=== PATIENT | female | born 1960 | race Asian ===

== ENCOUNTER 2023-01-18 20:15 | Emergency (ER) | payer BC ==
--- OUTSIDE RECORDS SUMMARY | 2023-01-18 20:20 | XMS REPORT | Continuity of Care Document ---
:1960 Author Organization [facility] t Address [address] [facility] [address] [place] [address] Care Team Providers Name Role Phone Ryan Meier MD Primary Care Physician [phone] [email or web address]_Kabritanya_S Attending Clinician Unavailable LENA VAUGHAN Attending Clinician Unavailable COMPA VELASCO Attending Clinician Unavailable [email or web address]_S Admitting Clinician Unavailable Problems This patient has no known problems. Allergies, Adverse Reactions, Alerts This patient has no known allergies or adverse reactions. Social History Social Habit Start Date Stop Date Quantity Comments Source Sexual orientation [facility] Alcohol intake 2017-01-20 2017-01-20 Current [facility] 00:00:00 00:00:00 non-drinker of Medical Ce nter alcohol (finding) Tobacco use and 2014-11-27 2014-11-27 Smokeless tobacco [facility] exposure 00:00:00 00:00:00 non-user [facility] Center Sex Assigned At [birth year] [facility] 00:00:00 00:00:00 [facility] Center Smoking Status Start Date Stop Date Source Never smoked tobacco [facility] Medications Ordered Filled Start Stop Current Ordering Indication Dosage Frequency Signature Comments Components Source Medication Medication Date Date Medication? Clinician (SIG) Name Name glucosamine 2016-03 Yes 1{tbl} [id number] Take [address] [facility] [address] -chondroiti [id number] tablet by [facility] 500-400 15:02: 3D mouth 3 Medic al mg tablet 16 (three) Center times daily. vitamin E 2016-03 Yes 400U QD Take [address] [facility] 400 UNIT 1-13 Units by [facility] capsule 15:02: mouth Medical 16 daily. Center colestipol 2016-03 Yes 1g Q.5D Take [address] [facility] (COLESTID) 1-13 by mouth 2 [place] 1 gram 15:02: (two) Medical tablet 16 times Center daily. cholecalcif 2016-03 Yes Take by [facility] argelia, 1-13 mouth. [facility] vitamin D3, 15:02: Medica l 2,000 unit 16 Center Cap CALCIUM 2016-03 Yes Take by [facility] CARBONATE 1-13 mouth. [facility] (CALCIUM 15:02: Medical 600 ORAL) 16 Center Procedures This patient has no known procedures. Encounters Start End Encounter Admission Attending Care Care Encounter Source Date/Time Date/Time Type Type Clinicians Facility Department ID 2023-01-06 2023-01-06 Outpatient [email or web address]_Ka PRIV PRIV [id number] [facility] 00:00:00 00:00:00 diyala_S [id number] Medic al 2023-01-05 2023-01-05 Outpatient [email or web address]_Ka PRIV PRIV [id number] [facility] 00:00:00 00:00:00 diyala_S [id number] Medic al 2022-10-22 2022-10-22 Outpatient [facility] [id number] [facility] 09:01:00 23:59:00 LENA 00 Results Test Description Test Time Test Comments Results Result Comments Source ELECTROLYTES 2017-01-14 11:22:00 Test Item Value Reference Range Interpretation Comme nts SODIUM (BEAKER) (test code = 381) 142 meq/L 136-145 POTASSIUM (BEAKER) (test code = 379) 4.5 meq/L 3.5-5.1 CHLORIDE (BEAKER) (test code = 382) 107 meq/L 98-107 CO2 (BEAKER) (test code = 355) 29 meq/L 22-29 SCREEN, [id number] 10:30:00 Test Item Value Reference Range Interpretation Comments TEST URINE (BEAKER) (test Negative code = 583) CBC W/PLT COUNT & AUTO [id number] 10:22:00 Test Item Value Reference Range Interpretation Comments WHITE BLOOD CELL COUNT (BEAKER) 7.5 K/ L 3.5-10.5 (test code = 775) RED BLOOD CELL COUNT (BEAKER) 4.65 M/ L 3.93-5.22 (test code = 761) HEMOGLOBIN (BEAKER) (test code = 13.8 GM/DL 11.2-15.7 410) HEMATOCRIT (BEAKER) (test code = 42.5 % 34.1-44.9 411) MEAN CORPUSCULAR VOLUME (BEAKER) 91.4 fL 79.4-94.8 (test code = 753) MEAN CORPUSCULAR HEMOGLOBIN 29.7 pg 25.6-32.2 (BEAKER) (test code = 751) MEAN CORPUSCULAR HEMOGLOBIN CONC 32.5 GM/DL 32.2-35.5 (BEAKER) (test code = 752) RED CELL DISTRIBUTION WIDTH 11.8 % 11.7-14.4 (BEAKER) (test code = 412) PLATELET COUNT (BEAKER) (test 264 K/CU MM 150-450 code = 756) MEAN PLATELET VOLUME (BEAKER) 9.1 fL 9.4-12.3 L (test code = 754) NUCLEATED RED BLOOD CELLS 0 /100 WBC 0-0 (BEAKER) (test code = 413) NEUTROPHILS RELATIVE PERCENT 54 % (BEAKER) (test code = 429) LYMPHOCYTES RELATIVE PERCENT 35 % (BEAKER) (test code = 430) MONOCYTES RELATIVE PERCENT 8 % (BEAKER) (test code = 431) EOSINOPHILS RELATIVE PERCENT 2 % (BEAKER) (test code = 432) BASOPHILS RELATIVE PERCENT 0 % (BEAKER) (test code = 437) NEUTROPHILS ABSOLUTE COUNT 4.08 K/ L 1.56-6.13 (BEAKER) (test code = 670) LYMPHOCYTES ABSOLUTE COUNT 2.65 K/ L 1.18-3.74 (BEAKER) (test code = 414) MONOCYTES ABSOLUTE COUNT (BEAKER) 0.59 K/ L 0.24-0.36 H (test code = 415) EOSINOPHILS ABSOLUTE COUNT 0.16 K/ L 0.04-0.36 (BEAKER) (test code = 416) BASOPHILS ABSOLUTE COUNT (BEAKER) 0.01 K/ L 0.01-0.08 (test code = 417) IMMATURE GRANULOCYTES-RELATIVE 0 % 0-1 PERCENT (CARMEN) (test code = 2801)
[2023-01-18] MEDS ORDERED: ACETAMINOPHEN 500 MG TAB ONE (21:22)
[2023-01-18] MEDS ORDERED: CIPROFLOXACIN 400mg IV 400 MG/200 ML BAG IV ONE (21:22)
[2023-01-18] MEDS ORDERED: TDAP (DIPHTH,PERTUSS(ACELL),TET VAC) 0.5 ML VIAL IMVAC ONE (21:37)
[2023-01-18] MEDS ORDERED: LIDOCAINE 1% 20 ML MDV ONE (21:37)
--- NOTE | 2023-01-18 22:38 | ER ---
Nurse's Notes [facility] Name: Gerald Hopkins Age: 62 yrs Sex: Female : 1960 Arrival Date: 01/18/2023 Time: 20:15 Bed 10 Private MD: Diagnosis: Laceration without foreign body of finger without damage to nail Presentation: 01/18 20:26 Chief complaint: Patient states: laceration to left hand 3rd digit with pain of 3,onset pf1 1999. stated patient cut finger on a broken ceramic bowl. Coronavirus screen: Vaccine status: Patient reports receiving the 2nd dose of the covid vaccine. 3 doses Client denies travel out of the [place] in the last 14 days. At this time, the client does not indicate any symptoms associated with coronavirus-19. Ebola Screen: Patient negative for fever greater than or equal to 101.5 degrees Fahrenheit, and additional compatible Ebola Virus Disease symptoms. Initial Sepsis Screen: Does the patient meet any 2 criteria? No. Patient's initial sepsis screen is negative. Does the patient have a suspected source of infection? No. Patient's initial sepsis screen is negative. Risk Assessment: Do you want to hurt yourself or someone else? Patient reports no desire to harm self or others. 20:26 Method Of Arrival: Ambulatory pf1 20:26 Acuity: ASTER 4 pf1 Historical: - Allergies: 20:34 No Known Allergies; pf1 - PMHx: 20:34 High Cholesterol; Gout; pf1 - PSHx: 20:34 back surgery; pf1 - Immunization history:: Adult Immunizations up to date, Client reports receiving the 2nd dose of the Covid vaccine, 3 doses of pfizer Last tetanus immunization: < 10 years ago Flu vaccine is up to date. - Social history:: Smoking status: Patient denies any tobacco usage or history of. Patient/guardian denies using alcohol, street drugs. Screenin:30 [facility] ED Fall Risk Assessment (Adult) History of falling in the last 3 months, pf1 including since admission No falls in past 3 months (0 pts) Confusion or Disorientation No (0 pts) Intoxicated or Sedated No (0 pts) Impaired Gait No (0 pts) Mobility Assist Device Used No (0 pt) Altered Elimination No (0 pt) Score/Fall Risk Level 0 - 2 = Low Risk Oriented to surroundings, Maintained a safe environment, Educated pt \T\ family on fall prevention, incl call for assistance when getting out of bed, Assessed \T\ reinforced patient's understanding of fall precautions, Provided non-skid footwear, Hourly rounding (assess needs \T\ fall precautionary measures) done, Used ambulatory aids as needed (educated on \T\ assisted with). 20:30 Abuse screen: Denies threats or abuse. Nutritional screening: No deficits noted. pf1 Tuberculosis screening: No symptoms or risk factors identified. Assessment: 20:26 General: Appears in no apparent distress. comfortable, well groomed, well developed, pf1 Behavior is calm, cooperative, appropriate for age, quiet. 20:26 Pain: Complains of pain in palmar aspect of distal phalanx of left middle finger Pain pf1 currently is 3 out of 10 on a pain scale. Neuro: No deficits noted. Level of Consciousness is awake, alert, obeys commands, Oriented to person, place, time, situation. Cardiovascular: No deficits noted. Capillary refill < 3 seconds Patient's skin is warm and dry. Respiratory: No deficits noted. Airway is patent Respiratory effort is even, unlabored, Respiratory pattern is regular, symmetrical. GI: No deficits noted. No signs and/or symptoms were reported involving the gastrointestinal system. : No deficits noted. No signs and/or symptoms were reported regarding the genitourinary system. EENT: No deficits noted. No signs and/or symptoms were reported regarding the EENT system. Derm: Wound noted palmar aspect of distal phalanx of left middle finger Wound is 2.5cm laceration. 21:30 Reassessment: Patient appears in no apparent distress at this time. Patient and/or pf1 family updated on plan of care and expected duration. Pain level reassessed. Patient is alert, oriented x 3, equal unlabored respirations, skin warm/dry/pink. Patient states symptoms have improved. 22:30 Reassessment: Patient appears in no apparent distress at this time. Patient and/or pf1 family updated on plan of care and expected duration. Pain level reassessed. Patient is alert, oriented x 3, equal unlabored respirations, skin warm/dry/pink. Patient states feeling better. Patient states symptoms have improved. Vital Signs: 20:26 BP 141 / 87; Pulse 79; Resp 16; Temp 98.4; Pulse Ox 100% ; Weight 61.23 kg; Height 5 pf1 ft. 0 in. ; Pain 3/10; 22:00 BP 133 / 78; Pulse 70; Resp 16; Pulse Ox 100% on R/A; Pain 0/10; pf1 23:00 BP 135 / 69; Pulse 72; Resp 16; Pulse Ox 99% on R/A; pf1 20:26 Body Mass Index 26.37 (61.23 kg, 152.4 cm) pf1 20:26 Pain Scale: Adult pf1 22:00 Pain Scale: Adult pf1 ED Course: 20:21 Patient arrived in ED. gm2 20:21 Beckie Tripathi PA-C is PHCP. sb4 20:21 Davie Morales MD is Attending Physician. sb4 20:30 Patient has correct armband on for positive identification. Bed in low position. Call pf1 light in reach. 20:30 Arm band placed on right wrist. pf1 20:30 No provider procedures requiring assistance completed. pf1 20:34 Triage completed. pf1 22:17 Hand Left 3 View XRAY In Process Unspecified. EDMS 22:40 Dressings: Kerlix X 1; palmar aspect of distal phalanx of left middle finger pf1 non-adherent dressing x 1 palmar aspect of distal phalanx of left middle finger. 23:00 Patient did not have IV access during this emergency room visit. pf1 23:01 Provided Education on: wound care and suture removal. pf1 Administered Medications: 21:30 Drug: Boostrix Tdap IM 0.5 ml IM once; as a single dose Route: IM; Site: right deltoid; pf1 22:30 Follow up: Response: No adverse reaction; Marked relief of symptoms pf1 22:30 Drug: Lidocaine Infiltration (1 %) 20 ml 20 ml Infiltration once; to bedside, lido pf1 without epi {Note: per PA. Deuce} Volume: 20 ml; Route: Infiltration; 23:00 Follow up: Response: No adverse reaction; Marked relief of symptoms; Pain is decreased pf1 Medication: 23:00 Vaccine Information Statement (VIS) provided today. Questions and/or concerns pf1 addressed. VIS edition date: October 12, 2020. Outcome: 22:37 Discharge ordered by . sb4 23:00 Discharged to home ambulatory, with family, pf1 23:00 Condition: improved 23:00 Discharge instructions given to patient, Instructed on discharge instructions, follow up and referral plans. wound care, Demonstrated understanding of instructions, follow-up care, wound care, 23:01 Patient left the ED. pf1 Signatures: Dispatcher [employer] EDBeckie Vallejo PA-C PA-C sb4 Alexa Nair RN RN pf1 Jonelle Menard gm2 Corrections: (The following items were deleted from the chart) 01/19 06:18 01/18 20:26 Derm: Wound noted palmar aspect of distal phalanx of left middle finger pf1 Wound is laceration pf1
--- NOTE | 2023-01-18 22:38 | EDPHYS ---
Physician Documentation [facility] Name: Gerald Hopkins Age: 62 yrs Sex: Female : 1960 Arrival Date: 01/18/2023 Time: 20:15 Bed 10 Private MD: ED Physician Davie Morales HPI: 01/18 21:10 This 62 yrs old Female presents to ER via Ambulatory with complaints of Finger sb4 Injury, finger laceration to middle finger. 21:10 The patient has a laceration related to: cooking, from a broken dish, occurred at home, sb4 and there are no complicating factors. The injury was accidental. 21:11 The laceration(s) is(are) located on the palmar aspect of distal phalanx of left middle sb4 finger. Onset: The symptoms/episode began/occurred just prior to arrival. Associated signs and symptoms: Pertinent negatives: deformity, dizziness, loss of consciousness, numbness distal to injury, suspected foreign body. The patient has not experienced similar symptoms in the past. The patient has not recently seen a physician. Historical: - Allergies: 20:34 No Known Allergies; pf1 - PMHx: 20:34 High Cholesterol; Gout; pf1 - PSHx: 20:34 back surgery; pf1 - Immunization history:: Adult Immunizations up to date, Client reports receiving the 2nd dose of the Covid vaccine, 3 doses of pfizer Last tetanus immunization: < 10 years ago Flu vaccine is up to date. - Social history:: Smoking status: Patient denies any tobacco usage or history of. Patient/guardian denies using alcohol, street drugs. ROS: 21:11 Constitutional: Negative for fever, chills, and weight loss, sb4 21:11 Skin: Positive for laceration(s), 21:11 All other systems are negative, Exam: 21:11 Constitutional: This is a well developed, well nourished patient who is awake, alert, sb4 and in no acute distress. Head/Face: Normocephalic, atraumatic. Eyes: Extra-ocular motions intact. Periorbital areas with no swelling, redness, or edema. ENT: Mucous membranes moist. MS/ Extremity: Pulses equal, no cyanosis. Neurovascular intact. Full, normal range of motion. Neuro: Awake and alert, GCS 15, oriented to person, place, time, and situation. Motor strength 5/5 in all extremities. Sensory grossly intact. 21:11 Skin: injury, laceration(s), the wound is approximately 2.5 cm(s), with a depth of .5 cm(s), of the palmar aspect of distal phalanx of left middle finger, that can be described as no foreign body, linear, with moderate bleeding, Vital Signs: 20:26 BP 141 / 87; Pulse 79; Resp 16; Temp 98.4; Pulse Ox 100% ; Weight 61.23 kg; Height 5 pf1 ft. 0 in. ; Pain 3/10; 22:00 BP 133 / 78; Pulse 70; Resp 16; Pulse Ox 100% on R/A; Pain 0/10; pf1 23:00 BP 135 / 69; Pulse 72; Resp 16; Pulse Ox 99% on R/A; pf1 20:26 Body Mass Index 26.37 (61.23 kg, 152.4 cm) pf1 20:26 Pain Scale: Adult pf1 22:00 Pain Scale: Adult pf1 Laceration: 22:35 Wound Repair of 2.5cm ( 1.0in ) subcutaneous laceration to palmar aspect of distal sb4 phalanx of left middle finger. Distal neuro/vascular/tendon intact. Anesthesia: Digital block administered with 5 mls of 1% lidocaine. Wound prep: Moderate cleansing with betadine, Wound irrigation with saline by va, Wound explored, Copious irrigation. Skin closed with 6 5-0 Prolene using simple sutures and sterile technique. Dressed with pressure dressing. Patient tolerated well. MDM: 20:29 Patient medically screened. sb4 21:11 Differential diagnosis: superficial laceration, tendon injury, vascular injury. sb4 22:02 Independent interpretation of the following test(s) in the Emergency Department X-Ray: sb4 My interpretation is My interpretation of the hand x-ray images are no acute fracture or foreign body present. 22:35 Data reviewed: vital signs, nurses notes, radiologic studies, and as a result, I will sb4 discharge patient. Counseling: I had a detailed discussion with the patient and/or guardian regarding the historical points, exam findings, and any diagnostic results supporting the discharge/admit diagnosis, radiology results, the need for outpatient follow up, for suture removal in 7-10 days, to return to the emergency department if symptoms worsen or persist or if there are any questions or concerns that arise at home. 01/18 21:12 Order name: Hand Left 3 View XRAY; Complete Time: 22:44 sb4 01/18 20:52 Order name: Suture Tray Setup; Complete Time: 21:30 sb4 01/18 22:35 Order name: Dressing - Wound; Complete Time: 22:51 sb4 Administered Medications: 21:30 Drug: Boostrix Tdap IM 0.5 ml IM once; as a single dose Route: IM; Site: right deltoid; pf1 22:30 Follow up: Response: No adverse reaction; Marked relief of symptoms pf1 22:30 Drug: Lidocaine Infiltration (1 %) 20 ml 20 ml Infiltration once; to bedside, lido pf1 without epi {Note: per PA. Deuce} Volume: 20 ml; Route: Infiltration; 23:00 Follow up: Response: No adverse reaction; Marked relief of symptoms; Pain is decreased pf1 Disposition Summary: 01/18/23 22:37 Discharge Ordered Notes: Location: Home sb4 Problem: new sb4 Symptoms: have improved sb4 Condition: Stable sb4 Diagnosis - Laceration without foreign body of finger without damage to nail sb4 Followup: sb4 - With: Emergency Department - When: 7 - 10 days - Reason: Staple/Suture removal Discharge Instructions: - Discharge Summary Sheet sb4 - Sutured Wound Care, [id number] sb4 Forms: - Medication Reconciliation Form sb4 - Thank You Letter sb4 - Antibiotic Education sb4 - Prescription Opioid Use sb4 - Patient Portal Instructions sb4 - Leadership Thank You Letter sb4 Signatures: Dispatcher [employer] Beckie Davies PA-C PA-C sbAlexa Mohamud, RN RN pf1
--- NOTE | 2023-01-18 22:40 | RAD REPORT ---
EXAM DESCRIPTION: RAD -Hand Left 3 View - 01/18/2023 10:15 pm CLINICAL HISTORY: Left hand pain status post injury FINDINGS: No fracture or dislocation is seen. Hypoplastic fifth middle proximal phalanx Radiopaque foreign body is not seen
[2023-01-18 23:25] VITALS: BP 141/87; TEMP 98.4; O2SAT 100
== END 2023-01-18 23:01 | disposition home or self-care (01) ==
LOC: ER 20:15
PROC: 0HQGXZZ Repair Left Hand Skin, External Approach (ICD-10-PCS; principal; 2023-01-18)
DX: S61.213A Laceration without foreign body of left middle finger without damage to nail, initial encounter (principal)
CPT/HCPCS: 73130; 96372; 99284; 12001; J2001; J0744

== ENCOUNTER 2023-01-27 15:43 | Emergency (ER) | payer BC ==
--- OUTSIDE RECORDS SUMMARY | 2023-01-27 15:47 | XMS REPORT | Continuity of Care Document ---
:1960 Author Organization [facility] t Address [address] [facility] [address] [place] [address] Care Team Providers Name Role Phone Hardeep SLOAN, Ryan Hernandez Primary Care Physician [phone] [email or web address]_S Attending Clinician Unavailable COMPA VELASCO Attending Clinician Unavailable [email or web address]_S Admitting Clinician Unavailable Problems This patient has no known problems. Allergies, Adverse Reactions, Alerts This patient has no known allergies or adverse reactions. Social History Social Habit Start Date Stop Date Quantity Comments Source Sexual orientation [facility] Alcohol intake 2017-01-20 2017-01-20 Current [facility] 00:00:00 00:00:00 non-drinker of Medical Ce nter alcohol (finding) Tobacco use and 2014-11-27 2014-11-27 Smokeless tobacco [facility] exposure 00:00:00 00:00:00 non-user [facility] Sex Assigned At [birth year] [facility] kes 00:00:00 00:00:00 [facility] Smoking Status Start Date Stop Date Source Never smoked tobacco [facility] Medications Ordered Filled Start Stop Current Ordering Indication Dosage Frequency Signature Comments Components Source Medication Medication Date Date Medication? Clinician (SIG) Name Name vitamin E 2016-03 Yes 400U QD Take [...] (CALCIUM 15:02: Medical 600 ORAL) 16 Center glucosamine 2016-03 Yes 1{tbl} Q.95256992 Take [address] [facility] -chondroiti 1-13 [id number] tablet by [facility] n 500-400 15:02: 3D mouth 3 Medic al mg tablet 16 (three) Center times daily. glucosamine 2016-03 Yes 1{tbl} Q.63848010 Take [address] [facility] -chondroiti 1-13 [id number] tablet by [facility] n 500-400 15:02: 3D mouth 3 Medic al mg tablet 16 (three) Center times daily. vitamin E 2016-03 Yes 400U QD Take [address] [facility] [address] 400 UNIT 1-13 Units by [facility] capsule 15:02: mouth Medical 16 daily. [place] colestipol 2016-03 Yes 1g Q.5D Take 1 [...] 2023-01-06 2023-01-06 Outpatient [email or web address]_Ka PRIV PRIV [id number] [facility] 00:00:00 00:00:00 diyala_S [id number] Medic al 2023-01-05 2023-01-05 Outpatient GC_GCBZW_Ka PRIV PRIV [id number] [facility] 00:00:00 00:00:00 diyala_S [id number] Medic al Results Test Description Test Time Test Comments Results Result Comments Source ELECTROLYTES 2017-01-14 11:22:00 Test Item Value Reference Range Interpretation Comme nts SODIUM (BEAKER) (test code = 381) 142 meq/L 136-145 POTASSIUM (BEAKER) (test code = 379) 4.5 meq/L 3.5-5.1 CHLORIDE (BEAKER) (test code = 382) 107 meq/L 98-107 CO2 (BEAKER) (test code = 355) 29 meq/L 22-29 SCREEN, [id number] 10:30:00 Test Item Value Reference Range Interpretation Comments TEST URINE (BEAKER) (test Negative code = 583) CBC W/PLT COUNT & AUTO [id number] 10:22:00 Test Item Value Reference Range Interpretation [...] 417) IMMATURE GRANULOCYTES-RELATIVE 0 % 0-1 PERCENT (BEAKER) (test code = 2801) Notes Date/Time Note Provider Source 2017-01-22 02:33:00 [id number]:33:00 REPORT OF COMPA [facility] PROCEDURECAMMARKOS NAVAUYEN FACILITY: [facility] #: [id number] ROOM: [facility] ED25MR #: [id number] : 2DATE OF PROCEDURE: 01/19/2017SURGEON: Compa Velasco [facility] Dr. Mike Mooney, hand fellow.PREOPERATIVE DIAGNOSES1. Left de Quervain stenosing tenosynovitis (M65.4).2. Stenosing 2nd dorsal tenosynovitis on the left wrist (M65.842).POSTOPERATIVE DIAGNOSES1. Left de Quervain stenosing tenosynovitis (M65.4).2. Stenosing 2nd dorsal tenosynovitis on the left wrist (M65.842).OPERATIONS PERFORMED1. Release of left wrist de Quervain stenosing tenosynovitis of the 1stdorsal compartment (57564).2. Release of left wrist 2nd dorsal compartment (57737.59).ANESTHESIA: [place] block.INDICATIONS FOR PROCEDURE: This is a 57-year-old patient who has previouslyseen me for very painful and obviously symptomatic left 1st dorsal stenosingde Quervain tenosynovitis. She also has palpable crepitus over theintersection area. This has not responded to prior injection and splintimmobilization. She is therefore brought to the operating room for releaseof both 1st and 2nd dorsal compartments.DESCRIPTION OF PROCEDURE: After Endy block had been placed and entire leftupper extremity prepped with Betadine and draped in a sterile fashion, I madea dorsal radial longitudinal incision that would give me access to both the1st and 2nd dorsal compartments. I dissected directly down into the fascialongitudinally and took great care to identify and minimize any potentialinjury to any of the branches of the superficial radial sensory nerve. The1st dorsal compartment was grossly thickened and fascia was incisedlongitudinally over favoring a more dorsal approach. There was also acompletely separate compartment for the EPB tendon. There was an EPB tendonand 2 separate tendons for the APL. Each of these were thoroughly released.I then evaluated the 2nd dorsal compartment and I incised that longitudinallyas well opening up to expose the ECRL and ECRB. I dissected back deep to theintersection area between the 1st and 2nd dorsal compartment tendons. Bothof these compartments now thoroughly released. The wound is irrigated withnormal saline and the wound edges reapproximated with interrupted Vicrylsubcutaneously and a running subcuticular Monocryl to skin. Plain Marcaine,0.25%, was then used to infiltrate the wound edges to help with postoperativeanalgesia and dressings took the form of Adaptic with bacitracin ointment,followed by conforming Kerlix and Webril and a volar thumb spica plastersplint leaving the IP joint of the thumb free and the fingers free to move.Meanwhile, the tourniquet had long since been released and there wasimmediately good capillary refill and blanching to distal fingertips andthumb. The patient returned to recovery room in a good condition. Spongeand needle counts correct at the end of procedure. Patient is dischargedhome to the care of an accompanying adult. A sling is fitted to the leftarm. She would keep the left arm elevated all times, wear the sling whenambulating. Active finger flexion extension is to be encouraged. She willkeep dressings clean and dry. She will call for any problems should theyarise and to keep a scheduled followup clinic appointment.DTN/dx P AJob#: [id number] Doc#: [id number] FN: [id number]: Compa Velasco MDOPOperative [id number] 76LUIS ENRIQUE [id number]
--- NOTE | 2023-01-27 16:00 | ER ---
Nurse's Notes [facility] Name: Gerald Hopkins Age: 62 yrs Sex: Female : 1960 Arrival Date: 01/27/2023 Time: 15:43 Bed 12 Private MD: Diagnosis: Encounter for removal of sutures Presentation: 01/27 15:57 Chief complaint: Patient states: Suture removal, had stitches placed 10 days ago. [facility] Coronavirus screen: Vaccine status: Patient reports being unvaccinated. Ebola Screen: Patient denies travel to an Ebola-affected area in the 21 days before illness onset. Initial Sepsis Screen: Does the patient meet any 2 criteria? HR > 90 bpm. No. Patient's initial sepsis screen is negative. Does the patient have a suspected source of infection? No. Patient's initial sepsis screen is negative. Risk Assessment: Do you want to hurt yourself or someone else? Patient reports no desire to harm self or others. Onset of symptoms was January 2023. 15:57 Method Of Arrival: Ambulatory [facility] 15:57 Acuity: ASTER 5 [facility] Historical: - Allergies: 15:59 No Known Allergies; nj1 - PMHx: 15:59 Gout; High Cholesterol; vt1 - PSHx: 15:59 back surgery; nj1 - Immunization history:: Client reports having NOT received the Covid vaccine. - Social history:: Smoking status: Patient denies any tobacco usage or history of. Vital Signs: 15:57 BP 140 / 92; Pulse 91; Resp 16; Temp 98.2(O); Pulse Ox 100% on R/A; Weight 59.87 kg; nj1 Height 5 ft. 0 in. ; 15:57 Body Mass Index 25.78 (59.87 kg, 152.4 cm) [facility] ED Course: 15:48 Patient arrived in ED. mr 15:49 Varun Reynoso MD is Attending Physician. ec2 15:59 Triage completed. [facility] 15:59 Arm band placed on. [facility] Administered Medications: No medications were administered Outcome: 16:00 Discharge ordered by . ec2 16:15 Patient left the ED. Signatures: Charlee Chappell, Isac Reg mr Mariann Valdes RN RN Loni Torres RN RN nj Reynoso, Varun, MD MD ec2
--- NOTE | 2023-01-27 16:00 | EDPHYS ---
Physician Documentation [facility] Name: Gerald Hopkins Age: 62 yrs Sex: Female : 1960 Arrival Date: 01/27/2023 Time: 15:43 Bed 12 Private MD: ED Physician Varun Reynoso HPI: 01/27 16:00 This 62 yrs old Female presents to ER via Ambulatory with complaints of Suture ec2 Removal. 16:00 Patient arrives today for evaluation of sutures. She states she had her sutures placed ec2 approximately 1.5 weeks ago. Reports no problems with this.. Historical: - Allergies: 15:59 No Known Allergies; nj1 - PMHx: 15:59 Gout; High Cholesterol; nj1 - PSHx: 15:59 back surgery; nj1 - Immunization history:: Client reports having NOT received the Covid vaccine. - Social history:: Smoking status: Patient denies any tobacco usage or history of. ROS: 16:01 Constitutional: as per hpi ec2 Exam: 16:01 Constitutional: GEN: NAD Head: atraumatic Eyes: EOMI Ears: External ears are ec2 normal. CV: regular rate LUNGS: no respiratory distress ABD: non-distended SKIN: Well-healing wound over the palmar aspect of the left distal middle finger, no erythema or discharge noted. MSK: no evidence of trauma NEURO: moves all extremities equally Vital Signs: 15:57 BP 140 / 92; Pulse 91; Resp 16; Temp 98.2(O); Pulse Ox 100% on R/A; Weight 59.87 kg; nj1 Height 5 ft. 0 in. ; 15:57 Body Mass Index 25.78 (59.87 kg, 152.4 cm) nj1 Procedures: 16:01 Suture/Staple removal: Removed 6 sutures, from left hand, site appears well healed, ec2 Patient tolerated well. MDM: 15:49 Patient medically screened. ec2 16:01 Data reviewed: vital signs. ED course: Patient arrives today for evaluation of her ec2 sutures. Examination remarkable well-appearing nontoxic individual without evidence of infection. I removed 6 sutures without issue. Will discharge home. Return precautions given.. Administered Medications: No medications were administered Disposition Summary: 01/27/23 16:00 Discharge Ordered Notes: Location: Home ec2 Condition: Stable ec2 Diagnosis - Encounter for removal of sutures ec2 Discharge Instructions: - Discharge Summary Sheet ec2 - Suture Removal, Care After ec2 Forms: - Medication Reconciliation Form ec2 - Thank You Letter ec2 - Antibiotic Education ec2 - Prescription Opioid Use ec2 - Patient Portal Instructions ec2 - Leadership Thank You Letter ec2 Signatures: Loni Torres RN RN nj1 Varun Reynoso MD MD ec2
[2023-01-27 16:32] VITALS: BP 140/92; TEMP 98.2; O2SAT 100
== END 2023-01-27 16:15 | disposition home or self-care (01) ==
LOC: ER 15:43
DX: Z48.02 Encounter for removal of sutures (principal)
CPT/HCPCS: 99281